=== PATIENT | female | born 1950 | race African-American/Black ===

== ENCOUNTER 2021-07-17 09:26 | Emergency (ER) | payer SELFPAY ==
[~2021-07-17] VITALS: Ht 165.1 cm; Wt 90.0 kg
[2021-07-17 09:41] VITALS: BP 144/99
--- NOTE | 2021-07-17 09:44 | PHYS DOC ---
General Adult EDM: Chief Complaint: SHOUDLER HPI: HPI: Patient is a 70-year-old female presents to the emergency department complaining of left shoulder blade pain since picking up to heavy cases of water 2 days ago. Patient noticed that her left shoulder blade became sore describing her discomfort as a cramp achy feeling, does not radiate. Patient reports aggravating factors are movement of the left arm, relieving factors are keeping her left arm still. Patient reports applying a lidocaine pain patch to her shoulder blade area at 4:00 this morning with little to no relief in pain, reports a current 8 out of 10 pain. Patient denies chest pains, denies shortness of breath, denies diaphoretic episodes, syncopal or near syncopal episodes, denies dizziness. Denies increased urinary frequency, denies urinary pressure, denies hematuria or other dysuria. Patient denies nausea, vomiting, or diarrhea. Patient reports taking amiodarone, amlodipine, and Xarelto for daily medications. Sees Dr. Amaro at [facility]. Patient states she did not take her morning medications. Patient has not tried other [id number] pain medications or tried other nonpharmacological pain relief methods. Patient denies other physical complaints or physical concerns. Review of Systems: Review of Systems: 14 body systems of review of systems have been reviewed. See HPI for pertinent positives and negative responses, otherwise all other systems are negative, nonpertinent or noncontributory. Constitutional: Negative except as outlined in HPI above. Skin: Negative except as outlined in HPI above. Eyes: Negative except as outlined in HPI above. HENT: Negative except as outlined in HPI above. Respiratory: Negative except as outlined in HPI above. Cardiovascular: Negative except as outlined in HPI above. GI: Negative except as outlined in HPI above. : Negative except as outlined in HPI above. Musculoskeletal: Negative except as outlined in HPI above. Integument: Negative except as outlined in HPI above. Neurologic: Negative except as outlined in HPI above. Endocrine: Negative except as outlined in HPI above. Lymphatic: Negative except as outlined in HPI above. Psychiatric: Negative except as outlined in HPI above. Heart Score: C/O Chest Pain: No Risk Factors: Risk Factors: DM, Current or recent (<one month) smoker, HTN, HLP, family history of CAD, obesity. Risk Scores: Score 0 - 3: 2.5% MACE over next 6 weeks - Discharge Home Score 4 - 6: 20.3% MACE over next 6 weeks - Admit for Clinical Observation Score 7 - 10: 72.7% MACE over next 6 weeks - Early Invasive Strategies Physical Exam: PE: Constitutional: Well developed, well nourished, no acute distress, non-toxic appearance. 70-year-old female in no apparent distress. HENT: Normocephalic, atraumatic. Eyes: Conjunctiva normal, no discharge. Neck: Normal range of motion, no stridor. Cardiovascular: No cyanosis appreciated, distal cap refill less than 2 seconds. Irregular heartbeat, heart rate 76 bpm. No murmurs appreciated. Lungs & Thorax: Patient is in no respiratory distress, no audible adventitious lung sounds appreciated. Lung sounds are clear to auscultation all lung barron, no pain to palpation of the anterior thorax. Abdomen: Nontender, no abnormalities noted. Skin: Warm, dry, no erythema, no rash. Back: No tenderness, no deformities. There is no midline spinal pain to palpation, no deformities are present, there is pain to palpation over the mu scular structures of the left scapula. Extremities: No tenderness, no cyanosis, no clubbing, ROM intact, no edema. Mild pain to palpation of the posterior shoulder muscular structures, full passive range of motion, distal cap refill less than 2 seconds equal bilateral upper extremities, 2+ bilateral radial pulses. 5/5 motor strength of bilateral upper extremities. Neurologic: Alert and oriented X 3, normal motor function, normal sensory function, no focal deficits noted. Psychologic: Affect normal, judgement normal, mood normal. Current Patient Data: Labs: Laboratory Tests Test 07/17/21 09:57 White Blood Count 3.6 x10^3/uL Red Blood Count 4.06 x10^6/uL Hemoglobin 12.9 g/dL Hematocrit 39.2 % Mean Corpuscular Volume 97 fL Mean Corpuscular Hemoglobin 32 pg Mean Corpuscular Hemoglobin Concent 33 g/dL Red Cell Distribution Width 12.7 % Platelet Count 337 x10^3/uL Neutrophils (%) (Auto) 49 % Lymphocytes (%) (Auto) 42 % Monocytes (%) (Auto) 8 % Eosinophils (%) (Auto) 0 % Basophils (%) (Auto) 1 % Neutrophils # (Auto) 1.7 x10^3/uL Lymphocytes # (Auto) 1.5 x10^3/uL Monocytes # (Auto) 0.3 x10^3/uL Eosinophils # (Auto) 0.0 x10^3/uL Basophils # (Auto) 0.0 x10^3/uL Sodium Level 144 mmol/L Potassium Level 3.2 mmol/L Chloride Level 107 mmol/L Carbon Dioxide Level 24 mmol/L Anion Gap 13 Blood Urea Nitrogen 9 mg/dL Creatinine 0.8 mg/dL Estimated GFR (Cockcroft-Gault) 70.9 Glucose Level 123 mg/dL Calcium Level 8.9 mg/dL Troponin I High Sensitivity 21 ng/L Current Medications Medications (Trade) Dose Ordered Sig/Olesya Route PRN Reason Start Time Stop Time Status Last Admin Dose Admin Cyclobenzaprine HCl (Flexeril) 10 mg 1X ONCE PO 07/17/21 10:00 07/17/21 10:04 DC 07/17/21 10:28 Ketorolac Tromethamine (Toradol 30mg Vial) 30 mg 1X ONCE IM 07/17/21 10:00 07/17/21 10:04 DC 07/17/21 10:28 EKG: EKG: EKG performed at 0 939 by ED nursing staff shows a atrial fibrillation controlled rate 75 bpm, QTc interval 0.506, no acute STEMI, no ACS, no acute ischemia appreciated, EKG interpreted by ED attending physician Dr. Gant. Radiology/Procedures: Radiology/Procedures: REASON: pain PROCEDURE: SHOULDER 2+V LEFT Left shoulder 3 views, left scapula 2 views. HISTORY: Pain Left scapula 2 views were taken of the left scapula. There is not evidence of an acute fracture. Left shoulder 3 views were taken of the left shoulder. There is not evidence of an acute fracture or dislocation. IMPRESSION: 1. No fracture or dislocation left shoulder. 2. No scapular fracture noted. Electronically signed by: Chago Feng MD (07/17/2021 10:10 AM) [facility] Course & Med Decision Making: Course & Med Decision Making Pertinent Labs and Imaging studies reviewed. (See chart for details) 70-year-old female, vital signs reviewed, presents to the emergency department concerning left scapula and shoulder pain after lifting 2 heavy cases of water 2 days ago. Physical examination is suspicious for musculoskeletal strain of the left upper back. The patient denies chest pain or chest discomfort, however with patient's cardiac history will order EKG, high-sensitivity troponin I, CBC, BMP, will give IM pain medication, p.o. muscle relaxer. The patient's labs are unremarkable, x-rays are nonconcerning, EKG is nonconcerning. Upon reevaluation of the patient, patient reports her pain is relieved down to a 2 or 3 out of 10 discussed findings with patient, discussed using muscle rela xers, no driving, operating heavy machinery, or participating in dangerous activities while on a muscle relaxer. Also discussed ibuprofen, continue to use the lidocaine patches for discomfort, strict follow-up with primary care physician Dr. Amaro at this week, return to ER precautions and concerns were reviewed, patient gave verbal understanding of and is amenable to ED discharge planning. Discussed with the patient all findings and diagnostic testing as well as the need to follow-up with their primary care provider for further evaluation and treatment or return to the ED if any new or worsening symptoms. Strict return precautions were also discussed at length, the patient voiced understanding and agreement with the discharge planning. The patient was nontoxic in appearance, in no apparent distress, and hemodynamically stable at the time of disposition. Dragon Disclaimer: [employer] Call Disclaimer: This electronic medical record was generated, in whole or in part, using a voice recognition dictation system. Departure Departure Impression: Primary Impression: Muscle strain of left upper back Qualified Codes: S29.012A - Strain of muscle and tendon of back wall of thorax, initial encounter Disposition: HOME / SELF CARE / HOMELESS Condition: GOOD Patient Instructions: Back Pain, Adult Additional Instructions: You were seen today in the emergency department for left upper back and shoulder pain after lifting heavy cases of water bottles 2 days ago. X-rays were performed of your left scapula and left shoulder did not show any concerning findings, you do not have any broken bones. You were given a oral dose of a muscle relaxer and an intramuscular injection of pain medication called Toradol, this seemed to help some with your pain. As we discussed, I am prescribing you additional dosing of muscle relaxers, also ibuprofen, you may continue to apply lidocaine patches over the sore areas as directed. Please follow-up with your primary care physician Dr. Prem CASTILLO this week for ongoing evaluation of your muscle aches and pains so that she may provide further pain management. Thank you for visiting our Emergency Department. It was a pleasure taking care of you today in the emergency department and we appreciate you trusting us with your care. If any additional problems come up don't hesitate to return to visit us. Please follow up with your primary care provider so they can plan additional care if needed and know about the problem that you had. If symptoms worsen come back to the Emergency Department. Any concerning symptoms that start such as chest pain, shortness of air, weakness or numbness on one side of the body, running high fevers or any other concerning symptoms return to the ER. Scripts Ibuprofen (IBUPROFEN) 600 Mg Tablet 600 MG PO PRN Q6HRS PRN for INFLAMMATION, #30 TAB 0 Refills Prov: MARIA A DENNIS APRN 07/17/21 Cyclobenzaprine Hcl (CYCLOBENZAPRINE HCL) 5 Mg Tablet 1 TAB PO TID PRN for back pain, #15 TAB 0 Refills Prov: MARIA A DENNIS APRN 07/17/21 MARIA A DENNIS APRN July 17, 2021 09:44
[2021-07-17] MEDS ORDERED: KETOROLAC 30 MG/ML VIAL. IM ONE (10:00)
[2021-07-17] MEDS ORDERED: CYCLOBENZAPRINE 10 MG TABLET. PO ONE (10:00)
[2021-07-17 10:04] LABS: BASO % 1 % (0-3); EOS % 0 % (0-3); HEMATOCRIT 39.2 % (36.0-47.0); HEMOGLOBIN 12.9 g/dL (12.0-15.5); LYMPH # 1.5 x10^3/uL (1.0-4.8); LYMPH % 42 % (24-48); MEAN CORPUSCULAR HEMOGLOBIN 32 pg (25-35); MEAN CORPUSCULAR HGB CONC 33 g/dL (31-37); MEAN CORPUSCULAR VOLUME 97 fL (79-100); MONO # 0.3 x10^3/uL (0.0-1.1); MONO % 8 % (0-9); NEUT # 1.7 x10^3/uL (1.8-7.7); NEUT % 49 % (31-73); PLATELET COUNT 337 x10^3/uL (140-400); RED BLOOD COUNT 4.06 x10^6/uL (3.50-5.40); RED CELL DISTRIBUTION WIDTH 12.7 % (11.5-14.5); WHITE BLOOD COUNT 3.6 x10^3/uL (4.0-11.0)
--- NOTE | 2021-07-17 10:13 | RAD ---
Left shoulder 3 views, left scapula 2 views. HISTORY: Pain Left scapula 2 views were taken of the left scapula. There is not evidence of an acute fracture. Left shoulder 3 views were taken of the left shoulder. There is not evidence of an acute fracture or dislocation. IMPRESSION: 1. No fracture or dislocation left shoulder. 2. No scapular fracture noted. Electronically signed by: Chago Feng MD (07/17/2021 10:10 AM) [facility]
--- NOTE | 2021-07-17 10:13 | RAD ---
Left shoulder 3 views, left scapula 2 views. HISTORY: Pain Left scapula 2 views were taken of the left scapula. There is not evidence of an acute fracture. Left shoulder 3 views were taken of the left shoulder. There is not evidence of an acute fracture or dislocation. IMPRESSION: 1. No fracture or dislocation left shoulder. 2. No scapular fracture noted. Electronically signed by: Chago Feng MD (07/17/2021 10:10 AM) [facility]
[2021-07-17 10:15] LABS: CALCIUM 8.9 mg/dL (8.5-10.1); CREATININE 0.8 mg/dL (0.6-1.0); GFR 70.9; POTASSIUM 3.2 mmol/L (3.5-5.1)
[2021-07-17] MEDS ORDERED: CYCL5TAB PO (11:19)
[2021-07-17] MEDS ORDERED: IBUP-1007 PO (11:19)
--- NOTE | 2021-07-18 09:04 | EKG ---
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
== END 2021-07-17 11:30 | disposition home or self-care (01) ==
LOC: ER 09:26
DX: S29.012A Strain of muscle and tendon of back wall of thorax, initial encounter (principal); X50.9XXA Other and unspecified overexertion or strenuous movements or postures, initial encounter; Y93.89 Activity, other specified; Y92.89 Other specified places as the place of occurrence of the external cause; Y99.8 Other external cause status
CPT/HCPCS: 36415; 73010; 73030; 80048; 84484; 85025; 93005; 96372; 99285; J1885